=== PATIENT | female | born 1975 | race Caucasian/White ===

== ENCOUNTER 2021-01-27 21:46 | Emergency (ER) | payer OTHER ==
[~2021-01-27 21:46] MED LIST: AMITRIPTYLINE H25 MG PO; ASPIR 8181 MG PO; AUGMENTIN 500-500 MG PO; BUSPAR 5MG TABLE5 MG PO; COLACE100 MG PO; GLUCOPHAGE500 MG PO; LEXAPRO10 MG PO; LIPITOR TAB 1010 MG PO; LISINOPRIL-HCT1 EAC1 PO; LORTAB 7.5-3251 EACH PO; OMEPRAZOLE20 M1 PO
== END 2021-01-27 23:02 | disposition home or self-care (01) ==
LOC: ER1 21:46
DX: S43.401A Unspecified sprain of right shoulder joint, initial encounter (principal); E11.9 Type 2 diabetes mellitus without complications; I10 Essential (primary) hypertension; W18.30XA Fall on same level, unspecified, initial encounter
CPT/HCPCS: 73030; 73060; 99283